=== PATIENT | male | born 1965 | race Caucasian/White ===

== ENCOUNTER 2020-10-05 14:36 | Emergency (ER) | payer BC, SELFPAY ==
--- NOTE | ~2020-10-05 | XR_ITS ---
EXAMINATION: XR hand LT min 3V EXAM DATE: 10/05/2020 INDICATION: thumb hand injury, swelling and bruising . Initial encounter. TECHNIQUE: Left hand frontal, lateral and oblique projections obtained and reviewed. There is no mary or study for comparison. FINDINGS: There are acute comminuted fractures of the left 1st metacarpal bone, main fracture line at the proximal aspect of the shaft, but with also fracture line extending to the margin of the carpome tacarpal joint. There is mild angulation. Closed, posttraumatic finding. There is overlying soft tiss ue swelling. Phalanges are unremarkable. IMPRESSION: Acute comminuted left 1st metacarpal shaft/base fractures. Reviewed, dictated and finalized at location A. [employer]
[2020-10-05 14:44] VITALS: BP 181/99; PULSE 90; RESP 16; TEMP 37.3; O2SAT 98
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
[2020-10-05 15:07] VITALS: BP 122/76
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
== END 2020-10-05 15:43 | disposition home or self-care (01) ==
PROVIDERS: Emergency Provider Nurse Practitioner Family
DX: S62.244A Nondisplaced fracture of shaft of first metacarpal bone, right hand, initial encounter for closed fracture (principal); V28.0XXA Motorcycle driver injured in noncollision transport accident in nontraffic accident, initial encounter; F17.210 Nicotine dependence, cigarettes, uncomplicated
CPT/HCPCS: 29125; 73130; 99214; A4565; G0463

== ENCOUNTER 2024-06-11 08:13 | Outpatient (CLI) | payer BC, SELFPAY ==
--- NOTE | ~2024-06-11 | US_ITS ---
EXAMINATION: US right upper quadrant DATE: 06/11/2024 08:35 INDICATION: ELEVATED LIVER ENZYMES TECHNIQUE: Multiple grayscale and Doppler ultrasound images of the right upper quadrant were obtained . COMPARISON: None available. FINDINGS: The visualized portions of the pancreas are normal. Echogenic liver parenchyma. No surface nodularity. Normal hepatopetal flow in the main portal vein. The gallbladder is normal with no abnorm al wall thickening, pericholecystic fluid or stones. The common bile duct measures 8 mm. There was no sonographic Diaz sign. IMPRESSION: Echogenic liver, most commonly due to steatosis but also can be seen with hepatitis and fibrosis. 8 m m common bile duct, correlate with biliary labs and consider MRCP. Reviewed, dictated and finalized at location K. IMPRESSION: Echogenic liver, most commonly due to steatosis but also can be seen with hepat itis and fibrosis. 8 mm common bile duct, correlate with biliary labs and consi arabella MRCP.
== END 2024-06-11 08:14 | disposition home or self-care (01) ==
LOC: CHSIMG 08:15
PROVIDERS: PCP Internal Medicine; Visit Provider Internal Medicine
DX: R94.5 Abnormal results of liver function studies (principal)
CPT/HCPCS: 76705

== ENCOUNTER 2024-06-22 07:20 | Outpatient (CLI) | payer BC, SELFPAY ==
--- NOTE | ~2024-06-22 | US_ITS ---
Ultrasound of the Abdominal Aorta INDICATION: Abdominal aortic aneurysm TECHNIQUE: Grayscale, color Doppler, and pulsed Doppler images of the aorta and common iliac arteries were obtained. COMPARISON: None. FINDINGS: Maximum vascular dimensions are as follows: Proximal aorta: 2.9 cm Mid aorta: 2.9 cm Distal aorta: 2.1 cm Right common iliac artery: 1.3 cm Left common iliac artery: 1.2 cm There is no evidence of abdominal aortic aneurysm. IMPRESSION: No evidence of abdominal aortic aneurysm. Reviewed, dictated and finalized at location M.
--- NOTE | ~2024-06-22 | CT_ITS ---
CT Scan of the Chest without Contrast: Clinical Indication: Lung cancer screening, nicotine dependence Technique: Contiguous sections were acquired throughout the chest without intravenous contrast. Dose reduction technique was used on this scan by utilizing automated exposure control and iterative recon struction technique. The dose-length product (DLP) was 95.44 mGy-cm. Findings: There is no evidence of any significant mediastinal, hilar or axillary lymphadenopathy. The mediastin al soft tissues appear normal. There is no evidence of pleural or pericardial effusion. There is mild biapical scarring. Calcified right lower lobe granuloma noted. 6 mm right lower lobe pu lmonary nodule present (axial image 96). Images through the upper abdomen reveal no abnormalities. Impression: Lung RADS 3: Probably benign. Six-month follow-up screening CT advised. Reviewed, dictated and finalized at [facility]. Impression: Lung RADS 3: Probably benign. Six-month follow-up screening CT advised.
== END 2024-06-22 07:21 | disposition home or self-care (01) ==
LOC: CHSIMG 07:22
PROVIDERS: PCP Internal Medicine; Visit Provider Internal Medicine
DX: Z12.2 Encounter for screening for malignant neoplasm of respiratory organs (principal); Z13.6 Encounter for screening for cardiovascular disorders; Z87.891 Personal history of nicotine dependence
CPT/HCPCS: 71271; 76706